=== PATIENT | female | born 1980 | race Asian ===

== ENCOUNTER 2018-09-20 12:11 | Emergency (ER) | payer MEDICAID ==
[~2018-09-20] VITALS: Ht 160 cm; Wt 65.8 kg
[2018-09-20 12:17] VITALS: BP_SYST 112
--- NOTE | 2018-09-20 13:00 | NUR ---
Patient was reported by admitting to have LWBS.
--- NOTE | 2018-09-20 13:40 | NUR ---
Called for patient unable to locate.
--- NOTE | 2018-09-20 14:27 | NUR ---
Called for patient, unable to locate patient. Patient presumed to have LWBS.
== END 2018-09-20 14:27 | disposition left against medical advice (07) ==
LOC: SED 12:11
DX: F41.9 Anxiety disorder, unspecified (principal); R06.02 Shortness of breath; Z53.21 Procedure and treatment not carried out due to patient leaving prior to being seen by health care provider